=== PATIENT | male | born 1935 | race Caucasian/White ===

== ENCOUNTER 2020-10-05 12:17 | Inpatient (IN) ==
[2020-10-08] MEDS ORDERED: Bisacodyl 10 MG RECTAL SUPPOSITORY RC PRN (17:18)
[2020-10-08] MEDS ORDERED: *HR* Dextrose 50 % in Water (Vial) 50 ML VIAL IVP PRN (17:21)
[2020-10-08] MEDS ORDERED: Dextrose Gel 15 GM/37.5 ML TUBE PO PRN ×2 (17:21)
[2020-10-08] MEDS ORDERED: D5% in Water 1,000 ML IVC PRN (17:21)
[2020-10-08] MEDS: Ipratropium Bromide 15 ML Spray NS SCH (20:25)
[2020-10-08] MEDS: Linagliptin [Tradjenta] 5 MG Tablet PO SCH (20:26)
[2020-10-08] MEDS: lisinopriL 20 MG TABLET PO SCH (20:38)
[2020-10-08] MEDS: Latanoprost 2.5 ML BOTTLE BOTH EYES SCH (20:38)
[2020-10-08] MEDS: Gabapentin 400 MG CAPSULE PO SCH (20:38)
[2020-10-09 05:45] LABS: Basophils % 0.1 %; Eosinophils # 0.2 K/mcL (0.0-0.6); Eosinophils % 2.3 %; Hematocrit 25.7 % (37.5-50.1); Hemoglobin 8.6 g/dL (12.9-16.9); Immature Granulocytes % 0.6 % (0-4); Lymphocytes # 1.1 K/mcL (0.6-4.6); Lymphocytes % 12.9 %; Mean Corpuscular HGB Conc 33.5 g/dL (31.6-35.5); Mean Corpuscular Volume 89.5 fL (83.0-100.0); Mean Platelet Volume 9.1 fL (9.4-12.4); Monocytes % 11.7 %; Neutrophils # 6.1 K/mcL (1.6-8.9); Platelet Count 453 K/mcL (140-400); Red Blood Count 2.87 M/mcL (4.19-5.50); Red Cell Distribution Width 13.6 % (11.5-14.5); Segmented Neutrophils % 72.4 %; White Blood Count 8.4 K/mcL (4.3-11.1)
[2020-10-09 05:59] LABS: BUN/Creatinine Ratio 38 (6-26); Blood Urea Nitrogen 32 mg/dL (8-23); Calcium 8.1 mg/dL (8.6-10.3); Carbon Dioxide 26 mEq/L (23-29); Chloride 98 mEq/L (98-107); Glucose 267 mg/dL (70-105); Osmolality,Calculated 286 (280-300); Potassium 4.6 mEq/L (3.5-5.1); Sodium 130 mEq/L (136-145); eGFR For African Americans > 60 (> 60); eGFR For Non-African Americans > 60 (> 60)
[2020-10-09] MEDS: *HR* Enoxaparin 40 MG/0.4 ML SYRINGE SQ SCH (06:16)
[2020-10-09] MEDS: Cyanocobalamin (B-12) 1,000 MCG TABLET PO SCH (08:28)
[2020-10-09] MEDS: polyethylene glycoL 3350 17 GM POWD.PACK PO SCH (08:28)
[2020-10-09] MEDS: Vitamin E 200 UNIT (90MG) CAPSULE PO SCH (08:28)
[2020-10-09] MEDS: amLODIPine 5 MG TABLET PO SCH (08:28)
[2020-10-09] MEDS: *HR* Glimepiride 4 MG TABLET PO SCH ×2 (08:29→17:24)
[2020-10-09] MEDS: Cholecalciferol (D-3) 1,000 UNIT (25MCG) TABLET PO SCH (08:29)
[2020-10-09] MEDS: Furosemide 20 MG TABLET PO SCH (08:29)
[2020-10-09] MEDS: *HR* Metformin 500 MG TABLET PO SCH ×2 (08:29→17:24)
[2020-10-09] MEDS: Magnesium Oxide 400 MG TABLET PO SCH (08:29)
[2020-10-09] MEDS: cefTRIAXone 2,000 MG in 0.9 % Sodium Chloride Mini Bag 100 ML IVPB SCH (08:29)
[2020-10-09] MEDS: Insulin LISPRO 300 UNITS/3 ML VIAL SUBQ SCH ×3 (08:31→17:06)
[2020-10-09] MEDS: Ipratropium Bromide 15 ML Spray NS SCH ×3 (08:31→20:18)
[2020-10-09] MEDS ORDERED: CefTRIAXone 2,000 MG VIAL IVPB SCH (09:00)
[2020-10-09] MEDS: Gabapentin 400 MG CAPSULE PO SCH (20:17)
[2020-10-09] MEDS: lisinopriL 20 MG TABLET PO SCH (20:17)
[2020-10-09] MEDS: Latanoprost 2.5 ML BOTTLE BOTH EYES SCH (20:19)
[2020-10-09] MEDS: Linagliptin [Tradjenta] 5 MG Tablet PO SCH (20:19)
[2020-10-10] MEDS: polyethylene glycoL 3350 17 GM POWD.PACK PO SCH (08:42)
[2020-10-10] MEDS: Cyanocobalamin (B-12) 1,000 MCG TABLET PO SCH (08:55)
[2020-10-10] MEDS: amLODIPine 5 MG TABLET PO SCH (08:55)
[2020-10-10] MEDS: Vitamin E 200 UNIT (90MG) CAPSULE PO SCH (08:55)
[2020-10-10] MEDS: *HR* Glimepiride 4 MG TABLET PO SCH ×2 (08:55→17:25)
[2020-10-10] MEDS: Magnesium Oxide 400 MG TABLET PO SCH (08:56)
[2020-10-10] MEDS: Cholecalciferol (D-3) 1,000 UNIT (25MCG) TABLET PO SCH (08:56)
[2020-10-10] MEDS: *HR* Enoxaparin 40 MG/0.4 ML SYRINGE SQ SCH (08:56)
[2020-10-10] MEDS: cefTRIAXone 2,000 MG in 0.9 % Sodium Chloride Mini Bag 100 ML IVPB SCH (08:56)
[2020-10-10] MEDS: Furosemide 20 MG TABLET PO SCH (08:56)
[2020-10-10] MEDS: *HR* Metformin 500 MG TABLET PO SCH ×2 (08:56→17:25)
[2020-10-10] MEDS: Ipratropium Bromide 15 ML Spray NS SCH ×3 (08:57→21:15)
[2020-10-10] MEDS: Insulin LISPRO 300 UNITS/3 ML VIAL SUBQ SCH ×3 (08:58→17:25)
[2020-10-10] MEDS: Latanoprost 2.5 ML BOTTLE BOTH EYES SCH (21:14)
[2020-10-10] MEDS: Gabapentin 400 MG CAPSULE PO SCH (21:14)
[2020-10-10] MEDS: lisinopriL 20 MG TABLET PO SCH (21:14)
[2020-10-10] MEDS: Linagliptin [Tradjenta] 5 MG Tablet PO SCH (21:17)
[2020-10-10] MEDS: *HR* OxyCODONE/APAP 7.5/325 TABLET PO PRN (23:23)
[2020-10-11] MEDS: *HR* Enoxaparin 40 MG/0.4 ML SYRINGE SQ SCH (06:57)
[2020-10-11] MEDS: polyethylene glycoL 3350 17 GM POWD.PACK PO SCH (09:16)
[2020-10-11] MEDS: Ipratropium Bromide 15 ML Spray NS SCH ×3 (09:17→21:12)
[2020-10-11] MEDS: Insulin LISPRO 300 UNITS/3 ML VIAL SUBQ SCH ×4 (09:18→21:09)
[2020-10-11] MEDS: amLODIPine 5 MG TABLET PO SCH (09:19)
[2020-10-11] MEDS: Cyanocobalamin (B-12) 1,000 MCG TABLET PO SCH (09:19)
[2020-10-11] MEDS: Vitamin E 200 UNIT (90MG) CAPSULE PO SCH (09:19)
[2020-10-11] MEDS: *HR* Glimepiride 4 MG TABLET PO SCH ×2 (09:20→16:58)
[2020-10-11] MEDS: Cholecalciferol (D-3) 1,000 UNIT (25MCG) TABLET PO SCH (09:20)
[2020-10-11] MEDS: cefTRIAXone 2,000 MG in 0.9 % Sodium Chloride Mini Bag 100 ML IVPB SCH (09:20)
[2020-10-11] MEDS: Magnesium Oxide 400 MG TABLET PO SCH (09:20)
[2020-10-11] MEDS: Furosemide 20 MG TABLET PO SCH (09:20)
[2020-10-11] MEDS: *HR* Metformin 500 MG TABLET PO SCH ×2 (09:20→16:58)
[2020-10-11] MEDS: *HR* OxyCODONE/APAP 7.5/325 TABLET PO PRN (16:58)
[2020-10-11] MEDS: Insulin DETEMIR 100 UNIT/ML X5UNITS SUBQ SCH (21:10)
[2020-10-11] MEDS: Gabapentin 400 MG CAPSULE PO SCH (21:11)
[2020-10-11] MEDS: lisinopriL 20 MG TABLET PO SCH (21:11)
[2020-10-11] MEDS: Latanoprost 2.5 ML BOTTLE BOTH EYES SCH (21:13)
[2020-10-11] MEDS: Linagliptin [Tradjenta] 5 MG Tablet PO SCH (21:13)
[2020-10-12] MEDS: *HR* Enoxaparin 40 MG/0.4 ML SYRINGE SQ SCH (05:39)
[2020-10-12] MEDS: Insulin LISPRO 300 UNITS/3 ML VIAL SUBQ SCH ×4 (08:51→21:05)
[2020-10-12] MEDS: Vitamin E 200 UNIT (90MG) CAPSULE PO SCH (09:00)
[2020-10-12] MEDS: amLODIPine 5 MG TABLET PO SCH (09:01)
[2020-10-12] MEDS: *HR* Glimepiride 4 MG TABLET PO SCH ×2 (09:01→16:14)
[2020-10-12] MEDS: Cholecalciferol (D-3) 1,000 UNIT (25MCG) TABLET PO SCH (09:01)
[2020-10-12] MEDS: Cyanocobalamin (B-12) 1,000 MCG TABLET PO SCH (09:01)
[2020-10-12] MEDS: Magnesium Oxide 400 MG TABLET PO SCH (09:01)
[2020-10-12] MEDS: *HR* OxyCODONE/APAP 7.5/325 TABLET PO PRN ×2 (09:01→16:17)
[2020-10-12] MEDS: Furosemide 20 MG TABLET PO SCH (09:01)
[2020-10-12] MEDS: *HR* Metformin 500 MG TABLET PO SCH ×2 (09:01→16:14)
[2020-10-12] MEDS: polyethylene glycoL 3350 17 GM POWD.PACK PO SCH (09:02)
[2020-10-12] MEDS: cefTRIAXone 2,000 MG in 0.9 % Sodium Chloride Mini Bag 100 ML IVPB SCH (09:05)
[2020-10-12] MEDS: Insulin DETEMIR 100 UNIT/ML X5UNITS SUBQ SCH ×2 (09:11→21:04)
[2020-10-12] MEDS: Ipratropium Bromide 15 ML Spray NS SCH ×3 (09:11→21:09)
[2020-10-12] MEDS: Gabapentin 400 MG CAPSULE PO SCH (20:59)
[2020-10-12] MEDS: lisinopriL 20 MG TABLET PO SCH (21:05)
[2020-10-12] MEDS: Linagliptin [Tradjenta] 5 MG Tablet PO SCH (21:05)
[2020-10-12] MEDS: Latanoprost 2.5 ML BOTTLE BOTH EYES SCH (21:09)
[2020-10-13] MEDS: *HR* Enoxaparin 40 MG/0.4 ML SYRINGE SQ SCH (06:39)
[2020-10-13] MEDS: Insulin LISPRO 300 UNITS/3 ML VIAL SUBQ SCH ×4 (12:11→20:51)
[2020-10-13] MEDS: Insulin DETEMIR 100 UNIT/ML X5UNITS SUBQ SCH ×2 (12:14→20:51)
[2020-10-13] MEDS: *HR* Glimepiride 4 MG TABLET PO SCH ×2 (12:14→16:55)
[2020-10-13] MEDS: Furosemide 20 MG TABLET PO SCH (12:14)
[2020-10-13] MEDS: *HR* Metformin 500 MG TABLET PO SCH ×2 (12:14→16:55)
[2020-10-13] MEDS: polyethylene glycoL 3350 17 GM POWD.PACK PO SCH (12:16)
[2020-10-13] MEDS: Magnesium Oxide 400 MG TABLET PO SCH (12:16)
[2020-10-13] MEDS: amLODIPine 5 MG TABLET PO SCH (12:16)
[2020-10-13] MEDS: Ipratropium Bromide 15 ML Spray NS SCH ×3 (12:16→20:50)
[2020-10-13] MEDS: cefTRIAXone 2,000 MG in 0.9 % Sodium Chloride Mini Bag 100 ML IVPB SCH (12:16)
[2020-10-13] MEDS: Cyanocobalamin (B-12) 1,000 MCG TABLET PO SCH (12:17)
[2020-10-13] MEDS: Cholecalciferol (D-3) 1,000 UNIT (25MCG) TABLET PO SCH (12:18)
[2020-10-13] MEDS: Vitamin E 200 UNIT (90MG) CAPSULE PO SCH (12:18)
[2020-10-13] MEDS: Latanoprost 2.5 ML BOTTLE BOTH EYES SCH (20:50)
[2020-10-13] MEDS: lisinopriL 20 MG TABLET PO SCH (20:52)
[2020-10-13] MEDS: *HR* OxyCODONE/APAP 7.5/325 TABLET PO PRN (20:53)
[2020-10-13] MEDS: Gabapentin 400 MG CAPSULE PO SCH (20:53)
[2020-10-13] MEDS: Linagliptin [Tradjenta] 5 MG Tablet PO SCH (20:53)
[2020-10-14] MEDS: *HR* Enoxaparin 40 MG/0.4 ML SYRINGE SQ SCH (06:38)
[2020-10-14] MEDS: Insulin LISPRO 300 UNITS/3 ML VIAL SUBQ SCH ×4 (07:38→20:55)
[2020-10-14] MEDS ORDERED: CefTRIAXone 2,000 MG VIAL ONE (09:53)
[2020-10-14] MEDS: cefTRIAXone 2,000 MG in 0.9 % Sodium Chloride Mini Bag 100 ML IVPB SCH (09:59)
[2020-10-14] MEDS: Vitamin E 200 UNIT (90MG) CAPSULE PO SCH (10:00)
[2020-10-14] MEDS: *HR* Metformin 500 MG TABLET PO SCH ×2 (10:00→17:02)
[2020-10-14] MEDS: Cholecalciferol (D-3) 1,000 UNIT (25MCG) TABLET PO SCH (10:00)
[2020-10-14] MEDS: polyethylene glycoL 3350 17 GM POWD.PACK PO SCH (10:00)
[2020-10-14] MEDS: Cyanocobalamin (B-12) 1,000 MCG TABLET PO SCH (10:01)
[2020-10-14] MEDS: Magnesium Oxide 400 MG TABLET PO SCH (10:01)
[2020-10-14] MEDS: amLODIPine 5 MG TABLET PO SCH (10:01)
[2020-10-14] MEDS: *HR* Glimepiride 4 MG TABLET PO SCH ×2 (10:01→17:02)
[2020-10-14] MEDS: Furosemide 20 MG TABLET PO SCH (10:01)
[2020-10-14] MEDS: Insulin DETEMIR 100 UNIT/ML X5UNITS SUBQ SCH ×2 (10:03→20:56)
[2020-10-14] MEDS: *HR* OxyCODONE/APAP 7.5/325 TABLET PO PRN ×2 (10:06→20:57)
[2020-10-14] MEDS: Ipratropium Bromide 15 ML Spray NS SCH ×3 (10:09→20:57)
[2020-10-14] MEDS: Gabapentin 400 MG CAPSULE PO SCH (20:57)
[2020-10-14] MEDS: lisinopriL 20 MG TABLET PO SCH (20:58)
[2020-10-14] MEDS: Latanoprost 2.5 ML BOTTLE BOTH EYES SCH (20:59)
[2020-10-14] MEDS: Linagliptin [Tradjenta] 5 MG Tablet PO SCH (21:00)
[2020-10-15] MEDS: *HR* Enoxaparin 40 MG/0.4 ML SYRINGE SQ SCH (07:00)
[2020-10-15 07:45] LABS: Basophils % 0.5 %; Eosinophils # 0.2 K/mcL (0.0-0.6); Eosinophils % 2.8 %; Hemoglobin 9.5 g/dL (12.9-16.9); Immature Granulocytes % 0.5 % (0-4); Lymphocytes # 1.4 K/mcL (0.6-4.6); Lymphocytes % 16.4 %; Mean Corpuscular HGB Conc 32.8 g/dL (31.6-35.5); Mean Corpuscular Hemoglobin 29.5 pg (28.0-33.3); Mean Corpuscular Volume 90.1 fL (83.0-100.0); Mean Platelet Volume 8.7 fL (9.4-12.4); Monocytes # 0.7 K/mcL (0.0-1.3); Monocytes % 8.7 %; Platelet Count 580 K/mcL (140-400); Red Blood Count 3.22 M/mcL (4.19-5.50); Red Cell Distribution Width 13.8 % (11.5-14.5); Segmented Neutrophils % 71.1 %; White Blood Count 8.4 K/mcL (4.3-11.1)
[2020-10-15 08:03] LABS: BUN/Creatinine Ratio 23 (6-26); Blood Urea Nitrogen 22 mg/dL (8-23); Calcium 8.6 mg/dL (8.6-10.3); Carbon Dioxide 27 mEq/L (23-29); Chloride 102 mEq/L (98-107); Glucose 54 mg/dL (70-105); Osmolality,Calculated 283 (280-300); Potassium 4.5 mEq/L (3.5-5.1); Sodium 136 mEq/L (136-145); eGFR For African Americans > 60 (> 60); eGFR For Non-African Americans > 60 (> 60)
[2020-10-15] MEDS: Ipratropium Bromide 15 ML Spray NS SCH ×3 (10:14→22:23)
[2020-10-15] MEDS: Insulin LISPRO 300 UNITS/3 ML VIAL SUBQ SCH ×4 (10:14→22:19)
[2020-10-15] MEDS: Magnesium Oxide 400 MG TABLET PO SCH (10:15)
[2020-10-15] MEDS: Vitamin E 200 UNIT (90MG) CAPSULE PO SCH (10:15)
[2020-10-15] MEDS: *HR* Glimepiride 4 MG TABLET PO SCH ×3 (10:15→18:09)
[2020-10-15] MEDS: polyethylene glycoL 3350 17 GM POWD.PACK PO SCH (10:15)
[2020-10-15] MEDS: cefTRIAXone 2,000 MG in 0.9 % Sodium Chloride Mini Bag 100 ML IVPB SCH (10:16)
[2020-10-15] MEDS: Cyanocobalamin (B-12) 1,000 MCG TABLET PO SCH (10:16)
[2020-10-15] MEDS: amLODIPine 5 MG TABLET PO SCH (10:16)
[2020-10-15] MEDS: Cholecalciferol (D-3) 1,000 UNIT (25MCG) TABLET PO SCH (10:16)
[2020-10-15] MEDS: *HR* Metformin 500 MG TABLET PO SCH ×2 (10:16→17:51)
[2020-10-15] MEDS: Furosemide 20 MG TABLET PO SCH (10:16)
[2020-10-15] MEDS: Insulin DETEMIR 100 UNIT/ML X5UNITS SUBQ SCH ×2 (12:18→22:18)
[2020-10-15 12:23] LABS: C-Reactive Protein 77 mg/L (Less than 10)
[2020-10-15] MEDS: lisinopriL 20 MG TABLET PO SCH (22:17)
[2020-10-15] MEDS: Gabapentin 400 MG CAPSULE PO SCH (22:17)
[2020-10-15] MEDS: *HR* OxyCODONE/APAP 7.5/325 TABLET PO PRN (22:17)
[2020-10-15] MEDS: Linagliptin [Tradjenta] 5 MG Tablet PO SCH (22:22)
[2020-10-15] MEDS: Latanoprost 2.5 ML BOTTLE BOTH EYES SCH (22:24)
[2020-10-16] MEDS: *HR* Enoxaparin 40 MG/0.4 ML SYRINGE SQ SCH (06:51)
[2020-10-16] MEDS: Insulin LISPRO 300 UNITS/3 ML VIAL SUBQ SCH ×4 (09:00→20:43)
[2020-10-16] MEDS: Cholecalciferol (D-3) 1,000 UNIT (25MCG) TABLET PO SCH (09:33)
[2020-10-16] MEDS: Vitamin E 200 UNIT (90MG) CAPSULE PO SCH (09:33)
[2020-10-16] MEDS: *HR* Metformin 500 MG TABLET PO SCH ×2 (09:33→17:19)
[2020-10-16] MEDS: Furosemide 20 MG TABLET PO SCH (09:33)
[2020-10-16] MEDS: Cyanocobalamin (B-12) 1,000 MCG TABLET PO SCH (09:33)
[2020-10-16] MEDS: *HR* Glimepiride 4 MG TABLET PO SCH ×2 (09:33→17:19)
[2020-10-16] MEDS: amLODIPine 5 MG TABLET PO SCH (09:33)
[2020-10-16] MEDS: Magnesium Oxide 400 MG TABLET PO SCH (09:33)
[2020-10-16] MEDS: polyethylene glycoL 3350 17 GM POWD.PACK PO SCH (09:34)
[2020-10-16] MEDS: Insulin DETEMIR 100 UNIT/ML X5UNITS SUBQ SCH ×2 (09:34→20:47)
[2020-10-16] MEDS: Ipratropium Bromide 15 ML Spray NS SCH ×3 (09:34→20:42)
[2020-10-16] MEDS: cefTRIAXone 2,000 MG in 0.9 % Sodium Chloride Mini Bag 100 ML IVPB SCH (09:35)
[2020-10-16] MEDS: Temazepam 15 MG CAPSULE PO PRN (20:40)
[2020-10-16] MEDS: Gabapentin 400 MG CAPSULE PO SCH (20:41)
[2020-10-16] MEDS: *HR* OxyCODONE/APAP 7.5/325 TABLET PO PRN (20:41)
[2020-10-16] MEDS: Linagliptin [Tradjenta] 5 MG Tablet PO SCH (20:42)
[2020-10-16] MEDS: Latanoprost 2.5 ML BOTTLE BOTH EYES SCH (20:43)
[2020-10-16] MEDS: lisinopriL 20 MG TABLET PO SCH (20:44)
[2020-10-17] MEDS: *HR* Enoxaparin 40 MG/0.4 ML SYRINGE SQ SCH (06:24)
[2020-10-17] MEDS: cefTRIAXone 2,000 MG in 0.9 % Sodium Chloride Mini Bag 100 ML IVPB SCH (08:01)
[2020-10-17] MEDS: Furosemide 20 MG TABLET PO SCH (08:06)
[2020-10-17] MEDS: polyethylene glycoL 3350 17 GM POWD.PACK PO SCH (08:06)
[2020-10-17] MEDS: Magnesium Oxide 400 MG TABLET PO SCH (08:06)
[2020-10-17] MEDS: Insulin DETEMIR 100 UNIT/ML X5UNITS SUBQ SCH ×2 (08:06→20:15)
[2020-10-17] MEDS: Insulin LISPRO 300 UNITS/3 ML VIAL SUBQ SCH ×4 (08:06→20:15)
[2020-10-17] MEDS: *HR* Glimepiride 4 MG TABLET PO SCH (08:06)
[2020-10-17] MEDS: amLODIPine 5 MG TABLET PO SCH (08:07)
[2020-10-17] MEDS: Cyanocobalamin (B-12) 1,000 MCG TABLET PO SCH (08:07)
[2020-10-17] MEDS: Cholecalciferol (D-3) 1,000 UNIT (25MCG) TABLET PO SCH (08:07)
[2020-10-17] MEDS: Vitamin E 200 UNIT (90MG) CAPSULE PO SCH (08:07)
[2020-10-17] MEDS: *HR* Metformin 500 MG TABLET PO SCH ×2 (08:07→16:55)
[2020-10-17] MEDS: Ipratropium Bromide 15 ML Spray NS SCH ×3 (08:09→20:15)
[2020-10-17] MEDS: lisinopriL 20 MG TABLET PO SCH (20:14)
[2020-10-17] MEDS: Temazepam 15 MG CAPSULE PO PRN (20:14)
[2020-10-17] MEDS: *HR* OxyCODONE/APAP 7.5/325 TABLET PO PRN (20:14)
[2020-10-17] MEDS: Latanoprost 2.5 ML BOTTLE BOTH EYES SCH (20:15)
[2020-10-17] MEDS: Gabapentin 400 MG CAPSULE PO SCH (20:15)
[2020-10-17] MEDS: Linagliptin [Tradjenta] 5 MG Tablet PO SCH (20:15)
[2020-10-18] MEDS: *HR* Enoxaparin 40 MG/0.4 ML SYRINGE SQ SCH (06:09)
[2020-10-18] MEDS: Insulin LISPRO 300 UNITS/3 ML VIAL SUBQ SCH ×4 (08:59→19:47)
[2020-10-18] MEDS: Vitamin E 200 UNIT (90MG) CAPSULE PO SCH (09:06)
[2020-10-18] MEDS: *HR* Metformin 500 MG TABLET PO SCH ×2 (09:06→16:44)
[2020-10-18] MEDS: *HR* OxyCODONE/APAP 7.5/325 TABLET PO PRN ×2 (09:06→16:45)
[2020-10-18] MEDS: polyethylene glycoL 3350 17 GM POWD.PACK PO SCH (09:06)
[2020-10-18] MEDS: Furosemide 20 MG TABLET PO SCH (09:07)
[2020-10-18] MEDS: Cyanocobalamin (B-12) 1,000 MCG TABLET PO SCH (09:07)
[2020-10-18] MEDS: amLODIPine 5 MG TABLET PO SCH (09:07)
[2020-10-18] MEDS: Magnesium Oxide 400 MG TABLET PO SCH (09:07)
[2020-10-18] MEDS: Cholecalciferol (D-3) 1,000 UNIT (25MCG) TABLET PO SCH (09:07)
[2020-10-18] MEDS: cefTRIAXone 2,000 MG in 0.9 % Sodium Chloride Mini Bag 100 ML IVPB SCH (09:08)
[2020-10-18] MEDS: Insulin DETEMIR 100 UNIT/ML X5UNITS SUBQ SCH ×2 (09:09→19:47)
[2020-10-18] MEDS: Ipratropium Bromide 15 ML Spray NS SCH ×3 (09:23→19:47)
[2020-10-18] MEDS: Gabapentin 400 MG CAPSULE PO SCH (19:46)
[2020-10-18] MEDS: lisinopriL 20 MG TABLET PO SCH (19:46)
[2020-10-18] MEDS: Temazepam 15 MG CAPSULE PO PRN (19:46)
[2020-10-18] MEDS: Latanoprost 2.5 ML BOTTLE BOTH EYES SCH (19:47)
[2020-10-18] MEDS: Linagliptin [Tradjenta] 5 MG Tablet PO SCH (19:48)
[2020-10-19] MEDS: *HR* Enoxaparin 40 MG/0.4 ML SYRINGE SQ SCH (06:15)
[2020-10-19] MEDS: cefTRIAXone 2,000 MG in 0.9 % Sodium Chloride Mini Bag 100 ML IVPB SCH (08:40)
[2020-10-19] MEDS: Insulin DETEMIR 100 UNIT/ML X5UNITS SUBQ SCH ×2 (08:41→20:16)
[2020-10-19] MEDS: polyethylene glycoL 3350 17 GM POWD.PACK PO SCH (08:41)
[2020-10-19] MEDS: Cyanocobalamin (B-12) 1,000 MCG TABLET PO SCH (08:42)
[2020-10-19] MEDS: Cholecalciferol (D-3) 1,000 UNIT (25MCG) TABLET PO SCH (08:42)
[2020-10-19] MEDS: *HR* Metformin 500 MG TABLET PO SCH ×2 (08:42→16:44)
[2020-10-19] MEDS: amLODIPine 5 MG TABLET PO SCH (08:42)
[2020-10-19] MEDS: Insulin LISPRO 300 UNITS/3 ML VIAL SUBQ SCH ×4 (08:43→20:17)
[2020-10-19] MEDS: Magnesium Oxide 400 MG TABLET PO SCH (08:43)
[2020-10-19] MEDS: Furosemide 20 MG TABLET PO SCH (08:43)
[2020-10-19] MEDS: *HR* OxyCODONE/APAP 7.5/325 TABLET PO PRN ×2 (08:43→16:44)
[2020-10-19] MEDS: Vitamin E 200 UNIT (90MG) CAPSULE PO SCH (08:43)
[2020-10-19] MEDS: Ipratropium Bromide 15 ML Spray NS SCH ×3 (08:44→20:17)
[2020-10-19] MEDS: Gabapentin 400 MG CAPSULE PO SCH (20:16)
[2020-10-19] MEDS: Temazepam 15 MG CAPSULE PO PRN (20:16)
[2020-10-19] MEDS: lisinopriL 20 MG TABLET PO SCH (20:16)
[2020-10-19] MEDS: Linagliptin [Tradjenta] 5 MG Tablet PO SCH (20:17)
[2020-10-19] MEDS: Latanoprost 2.5 ML BOTTLE BOTH EYES SCH (20:18)
[2020-10-20] MEDS: *HR* Enoxaparin 40 MG/0.4 ML SYRINGE SQ SCH (06:27)
[2020-10-20] MEDS: Cholecalciferol (D-3) 1,000 UNIT (25MCG) TABLET PO SCH (08:16)
[2020-10-20] MEDS: polyethylene glycoL 3350 17 GM POWD.PACK PO SCH (08:16)
[2020-10-20] MEDS: Vitamin E 200 UNIT (90MG) CAPSULE PO SCH (08:16)
[2020-10-20] MEDS: *HR* Metformin 500 MG TABLET PO SCH ×2 (08:16→16:09)
[2020-10-20] MEDS: Furosemide 20 MG TABLET PO SCH (08:17)
[2020-10-20] MEDS: Cyanocobalamin (B-12) 1,000 MCG TABLET PO SCH (08:17)
[2020-10-20] MEDS: Magnesium Oxide 400 MG TABLET PO SCH (08:17)
[2020-10-20] MEDS: amLODIPine 5 MG TABLET PO SCH (08:17)
[2020-10-20] MEDS: cefTRIAXone 2,000 MG in 0.9 % Sodium Chloride Mini Bag 100 ML IVPB SCH (08:17)
[2020-10-20] MEDS: Insulin LISPRO 300 UNITS/3 ML VIAL SUBQ SCH ×4 (08:18→20:47)
[2020-10-20] MEDS: Ipratropium Bromide 15 ML Spray NS SCH ×3 (09:30→20:47)
[2020-10-20] MEDS: Insulin DETEMIR 100 UNIT/ML X5UNITS SUBQ SCH ×2 (09:43→20:47)
[2020-10-20] MEDS: *HR* OxyCODONE/APAP 7.5/325 TABLET PO PRN (20:46)
[2020-10-20] MEDS: Gabapentin 400 MG CAPSULE PO SCH (20:46)
[2020-10-20] MEDS: Latanoprost 2.5 ML BOTTLE BOTH EYES SCH (20:46)
[2020-10-20] MEDS: Temazepam 15 MG CAPSULE PO PRN (20:46)
[2020-10-20] MEDS: lisinopriL 20 MG TABLET PO SCH (20:46)
[2020-10-20] MEDS: Linagliptin [Tradjenta] 5 MG Tablet PO SCH (20:48)
[2020-10-21] MEDS: *HR* Enoxaparin 40 MG/0.4 ML SYRINGE SQ SCH (06:38)
[2020-10-21] MEDS: *HR* OxyCODONE/APAP 7.5/325 TABLET PO PRN (08:25)
[2020-10-21] MEDS: *HR* Metformin 500 MG TABLET PO SCH ×2 (08:25→16:19)
[2020-10-21] MEDS: cefTRIAXone 2,000 MG in 0.9 % Sodium Chloride Mini Bag 100 ML IVPB SCH (08:25)
[2020-10-21] MEDS: Vitamin E 200 UNIT (90MG) CAPSULE PO SCH (08:25)
[2020-10-21] MEDS: Cyanocobalamin (B-12) 1,000 MCG TABLET PO SCH (08:26)
[2020-10-21] MEDS: amLODIPine 5 MG TABLET PO SCH (08:26)
[2020-10-21] MEDS: Ipratropium Bromide 15 ML Spray NS SCH ×3 (08:26→19:50)
[2020-10-21] MEDS: Furosemide 20 MG TABLET PO SCH (08:26)
[2020-10-21] MEDS: Magnesium Oxide 400 MG TABLET PO SCH (08:26)
[2020-10-21] MEDS: Cholecalciferol (D-3) 1,000 UNIT (25MCG) TABLET PO SCH (08:26)
[2020-10-21] MEDS: polyethylene glycoL 3350 17 GM POWD.PACK PO SCH ×2 (08:26→08:36)
[2020-10-21] MEDS: Insulin LISPRO 300 UNITS/3 ML VIAL SUBQ SCH ×4 (08:27→19:49)
[2020-10-21] MEDS: Insulin DETEMIR 100 UNIT/ML X5UNITS SUBQ SCH ×2 (09:26→19:51)
[2020-10-21] MEDS: Temazepam 15 MG CAPSULE PO PRN (19:48)
[2020-10-21] MEDS: lisinopriL 20 MG TABLET PO SCH (19:48)
[2020-10-21] MEDS: Gabapentin 400 MG CAPSULE PO SCH (19:48)
[2020-10-21] MEDS: Linagliptin [Tradjenta] 5 MG Tablet PO SCH (19:49)
[2020-10-21] MEDS: Latanoprost 2.5 ML BOTTLE BOTH EYES SCH (19:50)
[2020-10-22] MEDS: *HR* Enoxaparin 40 MG/0.4 ML SYRINGE SQ SCH (06:34)
[2020-10-22 07:28] LABS: Basophils % 0.6 %; Eosinophils # 0.6 K/mcL (0.0-0.6); Eosinophils % 8.8 %; Hematocrit 25.8 % (37.5-50.1); Hemoglobin 8.4 g/dL (12.9-16.9); Immature Granulocytes % 0.8 % (0-4); Lymphocytes # 1.3 K/mcL (0.6-4.6); Lymphocytes % 20.7 %; Mean Corpuscular HGB Conc 32.6 g/dL (31.6-35.5); Mean Corpuscular Hemoglobin 29.1 pg (28.0-33.3); Mean Corpuscular Volume 89.3 fL (83.0-100.0); Mean Platelet Volume 8.8 fL (9.4-12.4); Monocytes # 0.6 K/mcL (0.0-1.3); Neutrophils # 3.7 K/mcL (1.6-8.9); Platelet Count 440 K/mcL (140-400); Red Blood Count 2.89 M/mcL (4.19-5.50); Segmented Neutrophils % 60.1 %; White Blood Count 6.2 K/mcL (4.3-11.1)
[2020-10-22] MEDS: Insulin LISPRO 300 UNITS/3 ML VIAL SUBQ SCH ×4 (07:29→19:34)
[2020-10-22 08:00] LABS: BUN/Creatinine Ratio 34 (6-26); Blood Urea Nitrogen 31 mg/dL (8-23); Calcium 8.2 mg/dL (8.6-10.3); Carbon Dioxide 25 mEq/L (23-29); Chloride 106 mEq/L (98-107); Glucose 73 mg/dL (70-105); Osmolality,Calculated 293 (280-300); Potassium 4.3 mEq/L (3.5-5.1); Sodium 139 mEq/L (136-145); eGFR For African Americans > 60 (> 60); eGFR For Non-African Americans > 60 (> 60)
[2020-10-22 08:47] LABS: C-Reactive Protein 31 mg/L (Less than 10)
[2020-10-22] MEDS: cefTRIAXone 2,000 MG in 0.9 % Sodium Chloride Mini Bag 100 ML IVPB SCH (08:47)
[2020-10-22] MEDS: Cholecalciferol (D-3) 1,000 UNIT (25MCG) TABLET PO SCH (08:50)
[2020-10-22] MEDS: Magnesium Oxide 400 MG TABLET PO SCH (08:50)
[2020-10-22] MEDS: *HR* Metformin 500 MG TABLET PO SCH ×2 (08:50→17:02)
[2020-10-22] MEDS: Vitamin E 200 UNIT (90MG) CAPSULE PO SCH (08:50)
[2020-10-22] MEDS: Furosemide 20 MG TABLET PO SCH (08:50)
[2020-10-22] MEDS: amLODIPine 5 MG TABLET PO SCH (08:50)
[2020-10-22] MEDS: Cyanocobalamin (B-12) 1,000 MCG TABLET PO SCH (08:50)
[2020-10-22] MEDS: polyethylene glycoL 3350 17 GM POWD.PACK PO SCH (08:51)
[2020-10-22] MEDS: Ipratropium Bromide 15 ML Spray NS SCH ×3 (08:51→19:37)
[2020-10-22] MEDS: Insulin DETEMIR 100 UNIT/ML X5UNITS SUBQ SCH ×2 (08:51→19:34)
[2020-10-22] MEDS: lisinopriL 20 MG TABLET PO SCH (19:35)
[2020-10-22] MEDS: Gabapentin 400 MG CAPSULE PO SCH (19:36)
[2020-10-22] MEDS: Temazepam 15 MG CAPSULE PO PRN (19:36)
[2020-10-22] MEDS: Latanoprost 2.5 ML BOTTLE BOTH EYES SCH (19:37)
[2020-10-22] MEDS: Linagliptin [Tradjenta] 5 MG Tablet PO SCH (19:37)
[2020-10-23] MEDS: *HR* Enoxaparin 40 MG/0.4 ML SYRINGE SQ SCH (05:16)
[2020-10-23] MEDS: Insulin LISPRO 300 UNITS/3 ML VIAL SUBQ SCH ×4 (08:27→19:49)
[2020-10-23] MEDS: cefTRIAXone 2,000 MG in 0.9 % Sodium Chloride Mini Bag 100 ML IVPB SCH (08:28)
[2020-10-23] MEDS: Insulin DETEMIR 100 UNIT/ML X5UNITS SUBQ SCH ×2 (08:28→19:47)
[2020-10-23] MEDS: Magnesium Oxide 400 MG TABLET PO SCH (08:30)
[2020-10-23] MEDS: Vitamin E 200 UNIT (90MG) CAPSULE PO SCH (08:30)
[2020-10-23] MEDS: amLODIPine 5 MG TABLET PO SCH (08:30)
[2020-10-23] MEDS: Furosemide 20 MG TABLET PO SCH (08:30)
[2020-10-23] MEDS: *HR* Metformin 500 MG TABLET PO SCH ×2 (08:30→17:34)
[2020-10-23] MEDS: Cyanocobalamin (B-12) 1,000 MCG TABLET PO SCH (08:30)
[2020-10-23] MEDS: Cholecalciferol (D-3) 1,000 UNIT (25MCG) TABLET PO SCH (08:30)
[2020-10-23] MEDS: Ipratropium Bromide 15 ML Spray NS SCH ×3 (08:31→19:50)
[2020-10-23] MEDS: polyethylene glycoL 3350 17 GM POWD.PACK PO SCH (08:31)
[2020-10-23] MEDS: Gabapentin 400 MG CAPSULE PO SCH (19:46)
[2020-10-23] MEDS: lisinopriL 20 MG TABLET PO SCH (19:46)
[2020-10-23] MEDS: Temazepam 15 MG CAPSULE PO PRN (19:46)
[2020-10-23] MEDS: Latanoprost 2.5 ML BOTTLE BOTH EYES SCH (19:49)
[2020-10-23] MEDS: Linagliptin [Tradjenta] 5 MG Tablet PO SCH (19:50)
[2020-10-24] MEDS: *HR* Enoxaparin 40 MG/0.4 ML SYRINGE SQ SCH (05:52)
[2020-10-24] MEDS: Insulin LISPRO 300 UNITS/3 ML VIAL SUBQ SCH ×4 (08:53→20:59)
[2020-10-24] MEDS: Furosemide 20 MG TABLET PO SCH (08:54)
[2020-10-24] MEDS: Cholecalciferol (D-3) 1,000 UNIT (25MCG) TABLET PO SCH (08:54)
[2020-10-24] MEDS: Vitamin E 200 UNIT (90MG) CAPSULE PO SCH (08:54)
[2020-10-24] MEDS: Magnesium Oxide 400 MG TABLET PO SCH (08:54)
[2020-10-24] MEDS: amLODIPine 5 MG TABLET PO SCH (08:54)
[2020-10-24] MEDS: Cyanocobalamin (B-12) 1,000 MCG TABLET PO SCH (08:54)
[2020-10-24] MEDS: polyethylene glycoL 3350 17 GM POWD.PACK PO SCH (08:54)
[2020-10-24] MEDS: *HR* Metformin 500 MG TABLET PO SCH ×2 (08:54→16:49)
[2020-10-24] MEDS: Insulin DETEMIR 100 UNIT/ML X5UNITS SUBQ SCH ×2 (08:54→20:59)
[2020-10-24] MEDS: Ipratropium Bromide 15 ML Spray NS SCH ×3 (08:55→21:00)
[2020-10-24] MEDS: cefTRIAXone 2,000 MG in 0.9 % Sodium Chloride Mini Bag 100 ML IVPB SCH (10:30)
[2020-10-24] MEDS: Gabapentin 400 MG CAPSULE PO SCH (20:58)
[2020-10-24] MEDS: lisinopriL 20 MG TABLET PO SCH (20:59)
[2020-10-24] MEDS: Latanoprost 2.5 ML BOTTLE BOTH EYES SCH (20:59)
[2020-10-24] MEDS: Linagliptin [Tradjenta] 5 MG Tablet PO SCH (21:00)
[2020-10-24] MEDS: Temazepam 15 MG CAPSULE PO PRN (21:09)
[2020-10-25] MEDS: *HR* Enoxaparin 40 MG/0.4 ML SYRINGE SQ SCH (07:05)
[2020-10-25] MEDS: Furosemide 20 MG TABLET PO SCH (07:06)
[2020-10-25] MEDS: amLODIPine 5 MG TABLET PO SCH (07:06)
[2020-10-25] MEDS: polyethylene glycoL 3350 17 GM POWD.PACK PO SCH (07:06)
[2020-10-25] MEDS: Magnesium Oxide 400 MG TABLET PO SCH (07:06)
[2020-10-25] MEDS: *HR* Metformin 500 MG TABLET PO SCH ×2 (07:06→17:10)
[2020-10-25] MEDS: Cyanocobalamin (B-12) 1,000 MCG TABLET PO SCH (07:06)
[2020-10-25] MEDS: Cholecalciferol (D-3) 1,000 UNIT (25MCG) TABLET PO SCH (07:06)
[2020-10-25] MEDS: cefTRIAXone 2,000 MG in 0.9 % Sodium Chloride Mini Bag 100 ML IVPB SCH (07:07)
[2020-10-25] MEDS: Insulin LISPRO 300 UNITS/3 ML VIAL SUBQ SCH ×4 (07:07→21:00)
[2020-10-25] MEDS: Ipratropium Bromide 15 ML Spray NS SCH ×3 (07:09→20:50)
[2020-10-25] MEDS: Insulin DETEMIR 100 UNIT/ML X5UNITS SUBQ SCH ×2 (10:06→20:49)
[2020-10-25] MEDS: Vitamin E 200 UNIT (90MG) CAPSULE PO SCH (10:06)
[2020-10-25] MEDS: lisinopriL 20 MG TABLET PO SCH (20:48)
[2020-10-25] MEDS: Gabapentin 400 MG CAPSULE PO SCH (20:48)
[2020-10-25] MEDS: Temazepam 15 MG CAPSULE PO PRN (20:48)
[2020-10-25] MEDS: Linagliptin [Tradjenta] 5 MG Tablet PO SCH (20:50)
[2020-10-25] MEDS: Latanoprost 2.5 ML BOTTLE BOTH EYES SCH (20:51)
[2020-10-26] MEDS: *HR* Enoxaparin 40 MG/0.4 ML SYRINGE SQ SCH (06:31)
[2020-10-26] MEDS: Vitamin E 200 UNIT (90MG) CAPSULE PO SCH (08:45)
[2020-10-26] MEDS: polyethylene glycoL 3350 17 GM POWD.PACK PO SCH (08:45)
[2020-10-26] MEDS: *HR* Metformin 500 MG TABLET PO SCH ×2 (08:46→15:55)
[2020-10-26] MEDS: Magnesium Oxide 400 MG TABLET PO SCH (08:46)
[2020-10-26] MEDS: Furosemide 20 MG TABLET PO SCH (08:46)
[2020-10-26] MEDS: amLODIPine 5 MG TABLET PO SCH (08:46)
[2020-10-26] MEDS: Cholecalciferol (D-3) 1,000 UNIT (25MCG) TABLET PO SCH (08:46)
[2020-10-26] MEDS: Ipratropium Bromide 15 ML Spray NS SCH ×3 (08:47→19:53)
[2020-10-26] MEDS: Cyanocobalamin (B-12) 1,000 MCG TABLET PO SCH (08:47)
[2020-10-26] MEDS: Insulin DETEMIR 100 UNIT/ML X5UNITS SUBQ SCH ×2 (08:48→19:55)
[2020-10-26] MEDS: Insulin LISPRO 300 UNITS/3 ML VIAL SUBQ SCH ×4 (08:54→19:43)
[2020-10-26] MEDS: cefTRIAXone 2,000 MG in 0.9 % Sodium Chloride Mini Bag 100 ML IVPB SCH (09:41)
[2020-10-26] MEDS: Gabapentin 400 MG CAPSULE PO SCH (19:52)
[2020-10-26] MEDS: Temazepam 15 MG CAPSULE PO PRN (19:52)
[2020-10-26] MEDS: lisinopriL 20 MG TABLET PO SCH (19:52)
[2020-10-26] MEDS: Linagliptin [Tradjenta] 5 MG Tablet PO SCH (19:54)
[2020-10-26] MEDS: Latanoprost 2.5 ML BOTTLE BOTH EYES SCH (19:56)
[2020-10-27] MEDS: *HR* Enoxaparin 40 MG/0.4 ML SYRINGE SQ SCH (05:02)
[2020-10-27] MEDS: Insulin LISPRO 300 UNITS/3 ML VIAL SUBQ SCH ×4 (07:27→20:17)
[2020-10-27] MEDS: *HR* Metformin 500 MG TABLET PO SCH ×2 (07:34→16:29)
[2020-10-27] MEDS: Magnesium Oxide 400 MG TABLET PO SCH (07:34)
[2020-10-27] MEDS: Vitamin E 200 UNIT (90MG) CAPSULE PO SCH (07:35)
[2020-10-27] MEDS: Cholecalciferol (D-3) 1,000 UNIT (25MCG) TABLET PO SCH (07:35)
[2020-10-27] MEDS: Cyanocobalamin (B-12) 1,000 MCG TABLET PO SCH (07:35)
[2020-10-27] MEDS: Furosemide 20 MG TABLET PO SCH (07:35)
[2020-10-27] MEDS: polyethylene glycoL 3350 17 GM POWD.PACK PO SCH (07:35)
[2020-10-27] MEDS: Ipratropium Bromide 15 ML Spray NS SCH ×3 (07:35→20:16)
[2020-10-27] MEDS: amLODIPine 5 MG TABLET PO SCH (07:35)
[2020-10-27] MEDS: cefTRIAXone 2,000 MG in 0.9 % Sodium Chloride Mini Bag 100 ML IVPB SCH (07:51)
[2020-10-27] MEDS: Insulin DETEMIR 100 UNIT/ML X5UNITS SUBQ SCH ×2 (09:54→20:08)
[2020-10-27] MEDS: lisinopriL 20 MG TABLET PO SCH (20:07)
[2020-10-27] MEDS: Gabapentin 400 MG CAPSULE PO SCH (20:07)
[2020-10-27] MEDS: Temazepam 15 MG CAPSULE PO PRN (20:07)
[2020-10-27] MEDS: Latanoprost 2.5 ML BOTTLE BOTH EYES SCH (20:07)
[2020-10-27] MEDS: Linagliptin [Tradjenta] 5 MG Tablet PO SCH (20:16)
[2020-10-28] MEDS: *HR* Enoxaparin 40 MG/0.4 ML SYRINGE SQ SCH (05:43)
[2020-10-28] MEDS: cefTRIAXone 2,000 MG in 0.9 % Sodium Chloride Mini Bag 100 ML IVPB SCH (08:47)
[2020-10-28] MEDS: Furosemide 20 MG TABLET PO SCH (08:48)
[2020-10-28] MEDS: Magnesium Oxide 400 MG TABLET PO SCH (08:48)
[2020-10-28] MEDS: *HR* Metformin 500 MG TABLET PO SCH ×2 (08:48→16:34)
[2020-10-28] MEDS: Vitamin E 200 UNIT (90MG) CAPSULE PO SCH (08:48)
[2020-10-28] MEDS: polyethylene glycoL 3350 17 GM POWD.PACK PO SCH (08:48)
[2020-10-28] MEDS: Cholecalciferol (D-3) 1,000 UNIT (25MCG) TABLET PO SCH (08:49)
[2020-10-28] MEDS: Cyanocobalamin (B-12) 1,000 MCG TABLET PO SCH (08:49)
[2020-10-28] MEDS: Insulin LISPRO 300 UNITS/3 ML VIAL SUBQ SCH ×4 (08:49→19:57)
[2020-10-28] MEDS: amLODIPine 5 MG TABLET PO SCH (08:49)
[2020-10-28] MEDS: Ipratropium Bromide 15 ML Spray NS SCH ×2 (09:06→15:08)
[2020-10-28] MEDS: Insulin DETEMIR 100 UNIT/ML X5UNITS SUBQ SCH ×2 (09:06→19:58)
[2020-10-28] MEDS: lisinopriL 20 MG TABLET PO SCH (20:06)
[2020-10-28] MEDS: Gabapentin 400 MG CAPSULE PO SCH (20:06)
[2020-10-28] MEDS: Temazepam 15 MG CAPSULE PO PRN (20:14)
[2020-10-28] MEDS: Latanoprost 2.5 ML BOTTLE BOTH EYES SCH (20:18)
[2020-10-29] MEDS: Linagliptin [Tradjenta] 5 MG Tablet PO SCH (00:04)
[2020-10-29] MEDS: Ipratropium Bromide 15 ML Spray NS SCH (00:11)
[2020-10-29] MEDS: *HR* Enoxaparin 40 MG/0.4 ML SYRINGE SQ SCH (06:11)
[2020-10-29] MEDS: Vitamin E 200 UNIT (90MG) CAPSULE PO SCH (06:52)
[2020-10-29] MEDS: *HR* Metformin 500 MG TABLET PO SCH (06:52)
[2020-10-29] MEDS: Magnesium Oxide 400 MG TABLET PO SCH (06:53)
[2020-10-29] MEDS: Cyanocobalamin (B-12) 1,000 MCG TABLET PO SCH (06:53)
[2020-10-29] MEDS: Cholecalciferol (D-3) 1,000 UNIT (25MCG) TABLET PO SCH (06:53)
[2020-10-29] MEDS: amLODIPine 5 MG TABLET PO SCH (06:53)
[2020-10-29] MEDS: Furosemide 20 MG TABLET PO SCH (06:53)
[2020-10-29] MEDS: Insulin LISPRO 300 UNITS/3 ML VIAL SUBQ SCH (06:54)
[2020-10-29] MEDS: polyethylene glycoL 3350 17 GM POWD.PACK PO SCH (06:54)
[2020-10-29 07:59] LABS: Basophils % 0.5 %; Eosinophils # 0.4 K/mcL (0.0-0.6); Eosinophils % 5.4 %; Hematocrit 31.9 % (37.5-50.1); Hemoglobin 10.4 g/dL (12.9-16.9); Immature Granulocytes % 0.7 % (0-4); Lymphocytes # 1.4 K/mcL (0.6-4.6); Lymphocytes % 18.6 %; Mean Corpuscular HGB Conc 32.6 g/dL (31.6-35.5); Mean Corpuscular Hemoglobin 29.3 pg (28.0-33.3); Mean Corpuscular Volume 89.9 fL (83.0-100.0); Monocytes # 0.6 K/mcL (0.0-1.3); Monocytes % 8.2 %; Neutrophils # 4.9 K/mcL (1.6-8.9); Platelet Count 459 K/mcL (140-400); Red Blood Count 3.55 M/mcL (4.19-5.50); Red Cell Distribution Width 14.6 % (11.5-14.5); Segmented Neutrophils % 66.6 %; White Blood Count 7.4 K/mcL (4.3-11.1)
[2020-10-29 08:11] LABS: BUN/Creatinine Ratio 29 (6-26); Blood Urea Nitrogen 29 mg/dL (8-23); Calcium 8.5 mg/dL (8.6-10.3); Carbon Dioxide 26 mEq/L (23-29); Chloride 101 mEq/L (98-107); Glucose 270 mg/dL (70-105); Osmolality,Calculated 295 (280-300); Potassium 4.3 mEq/L (3.5-5.1); Sodium 135 mEq/L (136-145); eGFR For African Americans > 60 (> 60); eGFR For Non-African Americans > 60 (> 60)
[2020-10-29 08:16] VITALS: BP 126/64; PULSE 84; RESP 18; TEMP 97.4; O2SAT 97
[2020-10-29] MEDS: cefTRIAXone 2,000 MG in 0.9 % Sodium Chloride Mini Bag 100 ML IVPB SCH (10:55)
[2020-10-29 12:48] LABS: C-Reactive Protein 23 mg/L (Less than 10)
== END 2020-10-29 11:49 | disposition home health service (06) | DRG 949 ==
LOC: PREOBSVTOIN 16:14 → INPPIK 10-08 20:01
PROVIDERS: ADMIT Family Medicine; ATTEND Family Medicine